=== PATIENT | female | born 1975 ===

== ENCOUNTER 2025-08-08 20:17 | Emergency (ER) | payer SELFPAY ==
--- NOTE | ~2025-08-08 | XR_ITS ---
XR chest 2V HOSTORY: CP, SOB COMPARISON:[ None] FINDINGS: Frontal and lateral views of the chest were obtained. The lungs are clear. The heart size is normal in size. Pulmonary vasculature is unremarkable. Osseous structures are intact. IMPRESSION: No acute lung findings.] [ ] Reviewed, dictated and finalized at location S. UTER SYSTEMS DESIGN ANALYST
--- NOTE | 2025-08-08 20:21 | ECG_ITS ---
Test Date: 2025-08-08 20:25:23 Measurements Intervals [place] Rate: 81 P: 75 LA: 150 QRS: 17 QRSD: 105 T: 64 QT: 398 QTc: 463 Interpretive Statements SINUS RHYTHM No previous ECG available for comparison Electronically Signed On 08-09-2025 17:57:00 JACKERMAN by Ramu Perez M.D.
[2025-08-08 20:22] VITALS: BP 182/95; PULSE 89; RESP 19; TEMP 36.9; O2SAT 100
[2025-08-08 20:45] LABS: Hematocrit 41.7 % (37.0-47.0); Hemoglobin 14.1 g/dL (12.0-15.0); Immature Granulocyte Percent A 0.3 % (0-0.5); Lymphocytes Absolute Auto 2.92 K/mm3 (0.9-3.2); Mean Corpuscular HGB Conc 33.8 g/dl (32-36); Mean Corpuscular Hemoglobin 30.6 pg (26-34); Mean Corpuscular Volume 90.5 fl (80-100); Nucleated Red Blood Cells Absolute Auto 0.000 K/mm3 (0.0-0.012); Nucleated Red Blood Cells Perc 0.0 % (0.0-0.2); Platelet Count Result 382 k/mm3 (150-375); Red Blood Count 4.61 M/mm3 (4.2-5.4); White Blood Count 6.6 K/mm3 (4.5-10.0)
[2025-08-08 20:56] LABS: Alanine Aminotransferase 21 U/L (6-35); Albumin Level 4.4 g/dL (3.5-5.1); Alkaline Phosphatase 94 U/L (38-126); Anion Gap 9 mmol/L (4-12); Aspartate Amino Transferase 24 U/L (14-36); Bilirubin,Total 0.4 mg/dL (0.2-1.3); Blood Urea Nitrogen 17 mg/dL (7-17); Calcium 9.6 mg/dL (8.4-10.2); Carbon Dioxide 26 mmol/L (22-30); Chloride 106 mmol/L (98-107); Estimated Glomerular Filt Rate 54; Glucose 99 mg/dL (65-110); Lipase 124 U/L (23-300); Potassium 2.9 mmol/L (3.4-5.0); Sodium 141 mmol/L (137-145); Total Protein 7.9 g/dL (6.3-8.2)
[2025-08-08 21:07] LABS: INR 0.9; Partial Thromboplastin Time 26.0 Seconds (22.3-36.8); Prothrombin Time 12.1 Seconds (11.1-14.7); Troponin I < 0.012 ng/mL (0.000-0.034)
--- NOTE | 2025-08-08 22:30 | PC.NURSE ---
pt states my dogs are barking in the hotel so I need to go and check on them. I will come back in anything changes. pt educated to follow up with pcp as well.
== END 2025-08-08 22:30 | disposition left against medical advice (07) ==
PROVIDERS: Emergency Provider Student in an Organized Health Care Education/Training Program
DX: R07.9 Chest pain, unspecified (principal)
CPT/HCPCS: 36415; 71046; 80053; 83690; 84484; 85025; 85610; 85730; 93005; 99199